=== PATIENT | male | born 1985 | race Asian ===

== ENCOUNTER 2016-07-02 18:31 | Emergency (ER) | payer SELFPAY ==
--- NOTE | 2016-07-02 18:43 | NUR ---
PATIENT LEFT WITHOUT BEING SEEN BY DR. MUNOZ. NO FURTHER CARE PROVIDED FOR PATIENT.
== END 2016-07-02 18:43 | disposition left against medical advice (07) ==
LOC: MED 18:41
DX: R42 Dizziness and giddiness (principal); R53.1 Weakness; Z53.21 Procedure and treatment not carried out due to patient leaving prior to being seen by health care provider